=== PATIENT | male | born 1935 | race Caucasian/White ===

== ENCOUNTER 2018-12-12 12:02 | Emergency (ER) | payer OTHER, MEDICAID ==
[~2018-12-12] VITALS: Ht 175.3 cm; Wt 81.6 kg
[2018-12-12 12:02] VITALS: BP_SYST 116
[2018-12-12 14:44] VITALS: BP_SYST 115
== END 2018-12-12 14:00 | disposition home or self-care (01) ==
LOC: SED 12:02
DX: R09.89 Other specified symptoms and signs involving the circulatory and respiratory systems (principal); E11.9 Type 2 diabetes mellitus without complications; I10 Essential (primary) hypertension; F03.90 Unspecified dementia, unspecified severity, without behavioral disturbance, psychotic disturbance, mood disturbance, and anxiety; Z86.79 Personal history of other diseases of the circulatory system
CPT/HCPCS: 71045; 99283